=== PATIENT | male | born 1990 | race Caucasian/White ===

== ENCOUNTER 2017-10-22 13:50 | Emergency (ER) | payer BC, MEDICARE ==
--- NOTE | 2017-10-22 16:40 | EDM.PDOC ---
ED HPI GENERAL MEDICAL PROBLEM - General Chief Complaint: General Stated Complaint: PAIN ALL OVER Time Seen by Provider: 10/22/17 14:36 Source of Information: Reports: Patient History Limitations: Reports: No Limitations - History of Present Illness INITIAL COMMENTS - FREE TEXT/NARRATIVE: HISTORY AND PHYSICAL: []27-year-old male presenting with generalized pain History of Present Illness: []Patient states he has pain to his hands his arms his chest his feet and legs for one year Patient was seen yesterday at [facility] in [place], [place]. Patient is accompanied by his mother. Review of Systems: As per history of present illness and below otherwise all systems reviewed and negative. Past medical history: As per history of present illness and as reviewed below otherwise noncontributory. Surgical history: As per history of present illness and as reviewed below otherwise noncontributory. Social history: No reported history of drug or alcohol abuse. Family history: As per history of present illness and as reviewed below otherwise noncontributory. Physical exam: Alert and oriented man answering questions appropriately without any shortness of breath somewhat disheveled in appearance. Catheter present all over his clothing. Dirt is under his nails. Skin is intact without any open sores. HEENT: Atraumatic, normocehpalic, pupils reactive, negative for conjunctival pallor or scleral icterus, mucous membranes moist, throat clear, neck supple, nontender, trachea midline. Tongue is coated white. Cerumen is noted bilaterally to the tympanic canals. Lungs: Clear to auscultation, breath sounds equal bilaterally, chest non tender. Heart: S1S2, regular, negative for clicks, rubs, or JVD. Abdomen: Soft, nondistended, nontender. Negative for masses or hepatossplenmegaly. Negative for costovertebral tenderness. Pelvis: Stable nontender. Patient is able to bear weight on both hips and knees without significant discomfort. Pain is is reported to be worse while he is sitting. Genitourinary: Deferred. Rectal: Deferred Extremities: Atraumatic, negative for cords or calf pain. Full range of motion is present. No joints that are erythematous and/or edematous. Neurovascular unremarkable. Neuro: Awake, alert, oriented. Cranial nerves II through XII unremarkable. Cerebellum unremarkable. Motor and sensory unremarkable throughout. Exam nonfocal. Full range of motion to all joints. Patient's pain level has improved since the Toradol was given. Heartburn improved after the GI cocktail was given Diagnostics: [CBC UA urine culture ESR CRP EKG chest x-ray] Therapeutics: [Toradol] Impression: [Generalized body pain/chronic Hematuria] Plan: [Discharged to home Follow up with Dr. Calderón in [place] May need a referral to rheumatology May need a referral to urology for hematuria] Definitive disposition and diagnosis as appropriate pending reevaluation and review of above. Onset: Gradual Duration: Chronic, Getting Worse Location: Reports: Generalized Quality: Reports: Same as Previous Episode Severity: Mild Improves with: Reports: None Back Pain Score (Numeric/FACES): 7 Neck Pain Score (Numeric/FACES): 7 Thoracic Pain Score (Numeric/FACES): 7 - Related Data Allergies Allergy/AdvReac Type Severity Reaction Status Date / Time No Known Allergies Allergy Verified 10/22/17 14:28 Home Meds: Home Meds OLANZapine [ZyPREXA] 10/22/17 [History] Past Medical History Psychiatric History: Reports: Addiction, Schizophrenia - Infectious Disease History Infectious Disease History: Reports: Chicken Pox Social & Family History - Family History Family Medical History: Noncontributory - Tobacco Use Smoking Status *Q: Current Every Day Smoker Years of Tobacco use: 5 Packs/Tins Daily: 1 - Recreational Drug Use Recreational Drug Use: Yes Drug Use in Last 12 Months: Yes Recreational Drug Type: Reports: Marijuana/Hashish, Methamphetamine Recreational Drug Use Frequency: Binges ED ROS GENERAL - Review of Systems Review Of Systems: ROS reveals no pertinent complaints other than HPI. ED EXAM, GENERAL - Physical Exam Exam: See Below EKG INTERPRETATION EKG Date: 10/22/17 Rhythm: Other (Sinus tachycardia) Rate (Beats/Min): 99 Comparison: NA - No Prior EKG Course - Vital Signs Last Recorded V/S: Last Vital Signs Temp 36.0 C 10/22/17 14:23 Pulse 125 H 10/22/17 14:23 Resp 18 10/22/17 14:23 BP 131/84 10/22/17 14:23 Pulse Ox 97 10/22/17 14:23 - Orders/Labs/Meds Orders: Active Orders 24 hr Category Date Time Status EKG Documentation Completion [RC] STAT Care 10/22/17 17:27 Active Chest 2V [CR] Stat Exams 10/22/17 18:31 Taken CULTURE URINE [RM] Stat Lab 10/22/17 17:50 Received Labs: Laboratory Tests 10/22/17 10/22/17 10/22/17 Range/Units 17:09 17:09 17:09 WBC 16.90 H (4.0-11.0) K/uL RBC 5.21 (4.50-5.90) M/uL Hgb 16.0 (13.0-17.0) g/dL Hct 45.1 (38.0-50.0) % MCV 86.6 (80.0-98.0) fL MCH 30.7 (27.0-32.0) pg MCHC 35.5 (31.0-37.0) g/dL RDW Std Deviation 40.2 (28.0-62.0) fl RDW Coeff of Abby 13 (11.0-15.0) % Plt Count 268 (150-400) K/uL MPV 9.70 (7.40-12.00) fL Neut % (Auto) 78.0 (48.0-80.0) % Lymph % (Auto) 10.8 L (16.0-40.0) % [place] % (Auto) 10.0 (0.0-15.0) % Eos % (Auto) 1.0 (0.0-7.0) % Baso % (Auto) 0.2 (0.0-1.5) % Neut # (Auto) 13.2 H (1.4-5.7) K/uL Lymph # (Auto) 1.8 (0.6-2.4) K/uL [place] # (Auto) 1.7 H (0.0-0.8) K/uL Eos # (Auto) 0.2 (0.0-0.7) K/uL Baso # (Auto) 0.0 (0.0-0.1) K/uL Nucleated RBC % 0.0 /100WBC Nucleated RBCs # 0 K/uL ESR 4 (0-14) mm/hr Uric Acid 4.6 (2.1-7.4) mg/dL C-Reactive Protein 1.93 H (0.0-0.5) mg/dL Urine Color Urine Appearance Urine pH (5.0-8.0) Ur Specific [place] (1.001-1.035) Urine Protein (NEGATIVE) mg/dL Urine Glucose (UA) (NEGATIVE) mg/dL Urine Ketones (NEGATIVE) mg/dL Urine Occult Blood (NEGATIVE) Urine Nitrite (NEGATIVE) Urine Bilirubin (NEGATIVE) Urine Urobilinogen (<2.0) EU/dL Ur Leukocyte Esterase (NEGATIVE) Urine RBC (0-2/HPF) Urine WBC (0-5/HPF) Ur Epithelial Cells (NONE-FEW) Urine Bacteria (NEGATIVE) Urine Opiates Screen (NEGATIVE) Ur Oxycodone Screen (NEGATIVE) Urine Methadone Screen (NEGATIVE) Ur Barbiturates Screen (NEGATIVE) Ur Phencyclidine Scrn (NEGATIVE) Ur Amphetamine Screen (NEGATIVE) U Methamphetamines Scrn (NEGATIVE) U Benzodiazepines Scrn (NEGATIVE) U Cocaine Metab Screen (NEGATIVE) U Marijuana (THC) Screen (NEGATIVE) Monoscreen (NEG) 10/22/17 10/22/17 10/22/17 Range/Units 17:09 17:50 17:50 WBC (4.0-11.0) K/uL RBC (4.50-5.90) M/uL Hgb (13.0-17.0) g/dL Hct (38.0-50.0) % MCV (80.0-98.0) fL MCH (27.0-32.0) pg MCHC (31.0-37.0) g/dL RDW Std Deviation (28.0-62.0) fl RDW Coeff of Abby (11.0-15.0) % Plt Count (150-400) K/uL MPV (7.40-12.00) fL Neut % (Auto) (48.0-80.0) % Lymph % (Auto) (16.0-40.0) % [place] % (Auto) (0.0-15.0) % Eos % (Auto) (0.0-7.0) % Baso % (Auto) (0.0-1.5) % Neut # (Auto) (1.4-5.7) K/uL Lymph # (Auto) (0.6-2.4) K/uL [place] # (Auto) (0.0-0.8) K/uL Eos # (Auto) (0.0-0.7) K/uL Baso # (Auto) (0.0-0.1) K/uL Nucleated RBC % /100WBC Nucleated RBCs # K/uL ESR (0-14) mm/hr Uric Acid (2.1-7.4) mg/dL C-Reactive Protein (0.0-0.5) mg/dL Urine Color YELLOW Urine Appearance CLEAR Urine pH 6.0 (5.0-8.0) Ur Specific [place] <= 1.005 (1.001-1.035) Urine Protein NEGATIVE (NEGATIVE) mg/dL Urine Glucose (UA) NEGATIVE (NEGATIVE) mg/dL Urine Ketones NEGATIVE (NEGATIVE) mg/dL Urine Occult Blood MODERATE (NEGATIVE) Urine Nitrite NEGATIVE (NEGATIVE) Urine Bilirubin NEGATIVE (NEGATIVE) Urine Urobilinogen 0.2 (<2.0) EU/dL Ur Leukocyte Esterase NEGATIVE (NEGATIVE) Urine RBC 2-4 (0-2/HPF) Urine WBC 0-2 (0-5/HPF) Ur Epithelial Cells OCCASIONAL (NONE-FEW) Urine Bacteria FEW (NEGATIVE) Urine Opiates Screen NEGATIVE (NEGATIVE) Ur Oxycodone Screen NEGATIVE (NEGATIVE) Urine Methadone Screen NEGATIVE (NEGATIVE) Ur Barbiturates Screen NEGATIVE (NEGATIVE) Ur Phencyclidine Scrn NEGATIVE (NEGATIVE) Ur Amphetamine Screen NEGATIVE (NEGATIVE) U Methamphetamines Scrn NEGATIVE (NEGATIVE) U Benzodiazepines Scrn NEGATIVE (NEGATIVE) U Cocaine Metab Screen NEGATIVE (NEGATIVE) U Marijuana (THC) Screen NEGATIVE (NEGATIVE) Monoscreen NEGATIVE (NEG) Meds: Medications Discontinued Medications Generic Name Dose Route Start Last Admin Trade Name Freq PRN Reason Stop Dose Admin Al Hydroxide/Mg Hydroxide 15 0 ml 10/22/17 18:39 10/22/17 18:47 ml/ Metoclopramide HCl 5 mg/ PO 10/22/17 18:40 1 each Lidocaine HCl 5 ml ONETIME ONE Administration Ketorolac Tromethamine 60 mg 10/22/17 16:55 10/22/17 17:41 Toradol IM 10/22/17 16:56 60 mg ONETIME ONE Administration Departure - Departure Time of Disposition: 19:30 Disposition: Home, Self-Care 01 Condition: Good Clinical Impression: Body aches Hematuria Qualifiers: Hematuria type: unspecified type Qualified Code(s): R31.9 - Hematuria, unspecified - Discharge Information Instructions: Hematuria, Adult, Pain Without a Known Cause Referrals: PCP,None [Primary Care Provider] - Forms: ED Department Discharge Additional Instructions: The following information is given to patients seen in the emergency department who are being discharged to home. This information is to outline your options for follow-up care. We provide all patients seen in our emergency department with a follow-up referral. The need for follow-up, as well as the timing and circumstances, are variable depending upon the specifics of your emergency department visit. If you don't have a primary care physician on staff, we will provide you with a referral. We always advise you to contact your personal physician following an emergency department visit to inform them of the circumstance of the visit and for follow-up with them and/or the need for any referrals to a consulting specialist. The emergency department will also refer you to a specialist when appropriate. This referral assures that you have the opportunity for followup care with a specialist. All of these measure are taken in an effort to provide you with optimal care, which includes your followup. Under all circumstances we always encourage you to contact your private physician who remains a resource for coordinating your care. When calling for followup care, please make the office aware that this follow-up is from your recent emergency room visit. If for any reason you are refused follow-up, please contact the [facility] emergency department at and asked to speak to the emergency department charge nurse. Anti-inflammatories such as ibuprofen 3 times a day as discussed hematuria will need to be followed by Dr. Calderón Make an appointment to see him next week - My Orders Last 24 Hours: My Active Orders 10/22/17 17:27 EKG Documentation Completion [RC] STAT 10/22/17 17:50 CULTURE URINE [RM] Stat 10/22/17 18:31 Chest 2V [CR] Stat - Assessment/Plan Last 24 Hours: My Active Orders 10/22/17 17:27 EKG Documentation Completion [RC] STAT 10/22/17 17:50 CULTURE URINE [RM] Stat 10/22/17 18:31 Chest 2V [CR] Stat
[2017-10-22] MEDS ORDERED: Ketorolac 60 MG/2 ML SDV IM ONE (16:55)
[2017-10-22] MEDS ORDERED: Alum Hydrox/Mag Hydrox/Simeth 15 ML, Metoclopramide 5 MG, Lidocaine 2% 5 ML PO ONE ×3 (18:39)
--- NOTE | 2017-10-25 08:52 | CR ---
EXAM DATE: 10/22/17 PATIENT'S AGE: 27 Patient: RAFFI GAGNON Facility: [place], [place] Site . Site : [id number] Study: XRay Chest [id number] 7:20:01 PM Ordering Physician: Doctor Eason Final Report: INDICATION: Chest pain; shortness of breath. COMPARISON: None. TECHNIQUE: Two-view chest. FINDINGS: Normal size cardiac silhouette. Clear lung zuniga without evidence of acute pneumonic infiltrates or CHF. No pneumothorax or pleural effusion. IMPRESSION: Negative chest. Dictated by Analia Arriaga MD @ Oct 22 2017 7:23PM (Electronic Signature) Report Signed by Proxy. ISELA
== END 2017-10-22 19:35 | disposition home or self-care (01) ==
LOC: MW.ED 13:50
DX: R07.9 Chest pain, unspecified (principal); M79.602 Pain in left arm; M79.601 Pain in right arm; M79.605 Pain in left leg; M79.604 Pain in right leg; G89.29 Other chronic pain; R31.9 Hematuria, unspecified; F20.9 Schizophrenia, unspecified; F17.210 Nicotine dependence, cigarettes, uncomplicated
CPT/HCPCS: 36415; 71046; 80305; 81001; 84550; 85025; 85652; 86140; 86308; 87086; 93005; 96372; 99284; A9270; J1885; 99283

== ENCOUNTER 2021-04-15 11:26 | Emergency (ER) | payer MEDICARE, MEDICAID ==
[2021-04-15] MEDS ORDERED: Sodium Chloride 0.9% 10 ML Syringe FLUSH PRN (12:59)
[2021-04-15] MEDS ORDERED: Sodium Chloride 0.9% 2.5 ML Syringe FLUSH PRN (12:59)
[2021-04-15] MEDS ORDERED: Sodium Chloride 0.9% 1,000 ML IV ONE (13:02)
--- NOTE | 2021-04-15 13:40 | PCM.EKG ---
#1 Interpretation EKG Date: 04/15/21 Time: 13:34 Rhythm: NSR Rate (Beats/Min): 92 [place]: Normal P-Wave: Present QRS: Normal ST-T: Normal QT: Normal Comparison: No Change (10/22/17) EKG Interpretation Comments: Sinus Rhythm
--- NOTE | 2021-04-15 13:53 | CR ---
INDICATION: Stroke code TECHNIQUE: Chest radiograph 1 view COMPARISON: 10/22/2017 FINDINGS: Mediastinum: The mediastinum is normal in appearance. Mild new cardiomegaly is noted but may be accentuated by the portable technique. Lung: Both lungs are unremarkable in appearance. No sign of pleural effusion seen. No pneumothorax is identified. Bone and Soft tissue: Unremarkable for age. IMPRESSION: 1. Mild new cardiomegaly is noted but may be accentuated by the portable technique. Dictated by Richard Knowles MD @ 04/15/2021 1:52:42 PM Dictated by: Richard Knowles MD @ 04/15/2021 13:52:47 (Electronically Signed)
[2021-04-15 13:59] LABS: BLOOD UREA NITROGEN,BUN 14 mg/dL (7.0-18.0); CARBON DIOXIDE,CO2 28.5 mmol/L (21.0-32.0); CHLORIDE,CL 102 mmol/L (98-107); GLUCOSE RANDOM 135 mg/dL (74-106); LIPASE 133 U/L (73-393); SODIUM,NA 139 mmol/L (136-148)
--- NOTE | 2021-04-15 14:46 | CR ---
INDICATION: Injury. TECHNIQUE: Thoracic spine, 2 views. COMPARISON: Chest radiograph 10/22/2017. FINDINGS: There are 12 rib-bearing thoracic type vertebral bodies. No acute fracture identified. Vertebral body heights are well maintained. Normal vertebral body alignment. No significant degenerative changes. The visualized lungs are clear. Soft tissues are unremarkable. IMPRESSION: No acute or significant findings. Dictated by Nenita Smith MD @ 04/15/2021 2:45:[address] Nenita Smith @ Apr 15 2021 2:45PM
--- NOTE | 2021-04-15 14:46 | EDM.PDOC ---
ED HPI GENERAL MEDICAL PROBLEM - General Chief Complaint: General Stated Complaint: EXTREME PAIN THROUGHOUT BODY/FEELS WARM/FATIGUE Time Seen by Provider: 04/15/21 11:37 Source of Information: Reports: Patient History Limitations: Reports: No Limitations - History of Present Illness INITIAL COMMENTS - FREE TEXT/NARRATIVE: HISTORY AND PHYSICAL: History of present illness: Patient is a 31-year-old male who presents emergency room today with concern of various complaints including head/neck discomfort, short-term memory issues, upper back pain that has been ongoing for the past 2 weeks following head injury 2 weeks ago. Patient states that 2 weeks ago he was in his living room and states that he tripped on a new pair of shoes that he was wearing that were rubber. Patient states that he fell forward and hit his head against the wall and hurt his head and neck. Patient states that he went to the emergency room immediately following the incident in [place] and states he had a scan of his head and was told it was negative. Patient states that since then, he continues to have neck pain, upper back pain, head pain from the injury and states that he has generalized weakness. Patient states that also 1 week ago, he was diagnosed with bronchitis after he was seen in the emergency room for shortness of breath. Patient states he was given antibiotics and his shortness of breath has been improving over the past 1 week and no longer short of breath. Patient states he also has "pain all over "as he was bit by a pit bull many years ago of his hands. Patient denies any new injury or trauma. Patient states that he is also been tired and weak and states that he is able to get around but he feels as if "gravity is heavier ". Patient denies any other symptoms or concerns. Patient denies fever, chills, chest pain, shortness of breath, or cough. Denies change in vision, syncope, or near syncope. Denies nausea, vomiting, abdominal pain, diarrhea, constipation, or dysuria. Has not noted any blood in urine or stool. Patient has been eating and drinking appropriately. Review of systems: As per history of present illness and below otherwise all systems reviewed and negative. Past medical history: As per history of present illness and as reviewed below otherwise noncontributory. Surgical history: As per history of present illness and as reviewed below otherwise noncontributory. Social history: See social history for further information Family history: As per history of present illness and as reviewed below otherwise noncontributory. Physical exam: General: Patient is alert, oriented, and in no acute distress. Patient sitting comfortably on exam table. Vitals stable and reviewed by me. HEENT: Atraumatic, normocephalic, pupils equal and reactive bilaterally, negative for conjunctival pallor or scleral icterus, mucous membranes moist, TMs normal bilaterally, throat clear, neck supple, nontender, trachea midline. No drooling or trismus noted. No meningeal signs. No hot potato voice noted. Lungs: Clear to auscultation, breath sounds equal bilaterally, chest nontender. Heart: S1S2, regular rate and rhythm without overt murmur Abdomen: Soft, nondistended, nontender. Negative for masses or hepatosplenomegaly. Negative for costovertebral tenderness. Pelvis: Stable nontender. Genitourinary: Deferred. Rectal: Deferred. Skin: Intact, warm, dry. No lesions or rashes noted. Extremities: No obvious deformity of the complete spine. No step-offs, crepitus, or point tenderness to palpation of the complete spine. Patient does have some tenderness of the trapezius muscle of the cervical spine and paraspinous muscle of the thoracic spine but does have full range of motion of the complete spine. Straight leg raise intact bilaterally. Heel/toe gait intact. Patient is able to ambulate today in the emergency room without difficulty. Full range of motion of all extremities without pain or difficulty. Otherwise, atraumatic, negative for cords or calf pain. Neurovascular unremarkable. Neuro: Awake, alert, oriented. Cranial nerves II through XII unremarkable. Cerebellum unremarkable. Motor and sensory unremarkable throughout. Exam nonfocal. Notes: Patient is a 31-year-old male who presents emergency room today with concern variety of complaints including head/neck discomfort, generalized body aches, bronchitis 1 week ago, memory concerns, tiredness, and fatigue presenting for the past 1 to 2 weeks. Upon arrival to the ED, patient is mildly tachycardic 108 on exam, otherwise vitally stable. Patient does state that he had a recent head injury 2 weeks ago and was seen in the [place] emergency room. We will try to obtain these records but according to patient's description, possibly had a head CT scan. Will obtain an angiography head and neck given worsening/progressing symptoms since head injury as well as cardiac evaluation. See Dr. López's dictation for specific EKG interpretation. However, normal sinus rhythm with a rate of 92 bpm without STEMI. CBC shows a mild leukocytosis of 14.35 (non specific in isolation), otherwise remainder of CBC mild derangements are unremarkable. CMP shows an isolated mild elevation in glucose at 135. Otherwise CMP unremarkable. Troponin negative. TSH within normal limits. Alcohol negative. Covid negative. UDS is negative. FT alcohol negative. Covid negative. Chest x-ray shows new mild cardiomegaly noted but may be accentuated by portable technique. BNP machine is down so unable to obtain. Thoracic spine x-ray shows no acute or significant findings. Head and neck angiography shows no evidence of proximal artery occlusion, high- grade stenosis, aneurysm, dissection, or vascular malformation. Upon reevaluation of patient, he remains vitally stable and comfortable throughout stay in ED. Patient's mild tachycardia has resolved with normal saline given today in the emergency room. Strict return precautions thoroughly discussed with patient. Discussed importance for follow-up with a primary care provider. Voices understanding and is agreeable to plan of care. Denies any further questions or concerns at this time. Diagnostics: EKG, CBC, CMP, head neck angio CT, chest x-ray, thoracic x-ray, BNP, Trop, TSH, UDS, Ethanol [employer]: NS Prescription: None Impression: Concussion syndrome Neck injury Thoracic back injury Plan: 1. Follow-up with your primary care provider as discussed. Return to the ED as needed and as discussed. Definitive disposition and diagnosis as appropriate pending reevaluation and review of above. generalized body, head, neck Pain Score (Numeric/FACES): 7 - Related Data Allergies Allergy/AdvReac Type Severity Reaction Status Date / Time No Known Allergies Allergy Verified 04/15/21 12:26 Home Meds: Home Meds Omeprazole 20 mg PO BID PRN 04/15/21 [History] Past Medical History - Past Health History Medical/Surgical History: Denies Medical/Surgical History Psychiatric History: Reports: Addiction, Anxiety, Depression, Schizophrenia - Infectious Disease History Infectious Disease History: Reports: Chicken Pox, Measles Social & Family History - Family History Family Medical History: No Pertinent Family History - Tobacco Use Tobacco Use Status *Q: Current Every Day Tobacco User Years of Tobacco use: 10 Packs/Tins Daily: 1 - Alcohol Use Days Per Week of Alcohol Use: 7 Number of Drinks Per Day: 3 Total Drinks Per Week: 21 - Recreational Drug Use Recreational Drug Use: Yes Drug Use in Last 12 Months: No ED ROS GENERAL - Review of Systems Review Of Systems: Comprehensive ROS is negative, except as noted in HPI. ED EXAM, GENERAL - Physical Exam Exam: See Below (see dictation) Course - Vital Signs Last Recorded V/S: Last Vital Signs Temp 97.1 F 04/15/21 15:35 Pulse 81 04/15/21 15:35 Resp 18 04/15/21 15:35 BP 121/71 04/15/21 15:35 Pulse Ox 96 04/15/21 15:35 - Orders/Labs/Meds Orders: Active Orders 24 hr Category Date Time Status B-TYPE NATRIURETIC PEPTIDE,BNP [CHEM] Stat Lab 04/15/21 13:16 Stop Req Sodium Chloride 0.9% [Saline Flush] Med 04/15/21 12:59 Active 10 ml FLUSH ASDIRECTED PRN Sodium Chloride 0.9% [Saline Flush] Med 04/15/21 12:59 Active 2.5 ml FLUSH ASDIRECTED PRN Saline Lock Insert [OM.PC] Stat Oth 04/15/21 12:59 Ordered Medication Orders Sodium Chloride (Sodium Chloride 0.9% 10 Ml Syringe) 10 ml FLUSH ASDIRECTED PRN PRN Reason: Keep Vein Open Last Admin: 04/15/21 13:12 Dose: 10 ml Documented by: JARROD Sodium Chloride (Sodium Chloride 0.9% 2.5 Ml Syringe) 2.5 ml FLUSH ASDIRECTED PRN PRN Reason: Keep Vein Open Last Admin: 04/15/21 13:12 Dose: 2.5 ml Documented by: JARROD Labs: Laboratory Tests 04/15/21 04/15/21 04/15/21 Range/Units 13:14 13:16 13:16 WBC 14.35 H (4.0-11.0) K/uL RBC 4.99 (4.50-5.90) M/uL Hgb 14.8 (13.0-17.0) g/dL Hct 43.6 (38.0-50.0) % MCV 87.4 (80.0-98.0) fL MCH 29.7 (27.0-32.0) pg MCHC 33.9 (31.0-37.0) g/dL RDW Std Deviation 43.0 (28.0-62.0) fl RDW Coeff of Abby 14 (11.0-15.0) % Plt Count 363 (150-400) K/uL MPV 9.10 (7.40-12.00) fL Neut % (Auto) 68.9 (48.0-80.0) % Lymph % (Auto) 19.0 (16.0-40.0) % [place] % (Auto) 7.9 (0.0-15.0) % Eos % (Auto) 3.6 (0.0-7.0) % Baso % (Auto) 0.6 (0.0-1.5) % Neut # (Auto) 9.9 H (1.4-5.7) K/uL Lymph # (Auto) 2.7 H (0.6-2.4) K/uL [place] # (Auto) 1.1 H (0.0-0.8) K/uL Eos # (Auto) 0.5 (0.0-0.7) K/uL Baso # (Auto) 0.1 (0.0-0.1) K/uL Nucleated RBC % 0.0 /100WBC Nucleated RBCs # 0 K/uL Sodium 139 (136-148) mmol/L Potassium 4.0 (3.5-5.1) mmol/L Chloride 102 (98-107) mmol/L Carbon Dioxide 28.5 (21.0-32.0) mmol/L BUN 14 (7.0-18.0) mg/dL Creatinine 1.2 (0.8-1.3) mg/dL Est Cr Clr Drug Dosing 84.71 mL/min Estimated GFR (MDRD) > 60.0 ml/min Glucose 135 H (74-106) mg/dL Calcium 8.7 (8.5-10.1) mg/dL Total Bilirubin 0.2 (0.2-1.0) mg/dL AST 26 (15-37) IU/L ALT 59 (14-63) IU/L Alkaline Phosphatase 76 (46-116) U/L Troponin I < 0.050 (0.000-0.056) ng/mL Total Protein 7.3 (6.4-8.2) g/dL Albumin 3.6 (3.4-5.0) g/dL Globulin 3.7 (2.6-4.0) g/dL Albumin/Globulin Ratio 1.0 (0.9-1.6) Lipase 133 (73-393) U/L TSH, Ultra Sensitive 1.67 (0.36-3.74) uIU/mL Urine Opiates Screen NEGATIVE (NEGATIVE) Ur Oxycodone Screen NEGATIVE (NEGATIVE) Urine Methadone Screen NEGATIVE (NEGATIVE) Ur Barbiturates Screen NEGATIVE (NEGATIVE) Ur Phencyclidine Scrn NEGATIVE (NEGATIVE) Ur Amphetamine Screen NEGATIVE (NEGATIVE) U Methamphetamines Scrn NEGATIVE (NEGATIVE) U Benzodiazepines Scrn NEGATIVE (NEGATIVE) U Cocaine Metab Screen NEGATIVE (NEGATIVE) U Marijuana (THC) Screen NEGATIVE (NEGATIVE) Ethyl Alcohol < 3.0 mg/dL SARS-CoV-2 RNA (ILENE) (NEGATIVE) 04/15/21 Range/Units 13:16 WBC (4.0-11.0) K/uL RBC (4.50-5.90) M/uL Hgb (13.0-17.0) g/dL Hct (38.0-50.0) % MCV (80.0-98.0) fL MCH (27.0-32.0) pg MCHC (31.0-37.0) g/dL RDW Std Deviation (28.0-62.0) fl RDW Coeff of Abby (11.0-15.0) % Plt Count (150-400) K/uL MPV (7.40-12.00) fL Neut % (Auto) (48.0-80.0) % Lymph % (Auto) (16.0-40.0) % [place] % (Auto) (0.0-15.0) % Eos % (Auto) (0.0-7.0) % Baso % (Auto) (0.0-1.5) % Neut # (Auto) (1.4-5.7) K/uL Lymph # (Auto) (0.6-2.4) K/uL [place] # (Auto) (0.0-0.8) K/uL Eos # (Auto) (0.0-0.7) K/uL Baso # (Auto) (0.0-0.1) K/uL Nucleated RBC % /100WBC Nucleated RBCs # K/uL Sodium (136-148) mmol/L Potassium (3.5-5.1) mmol/L Chloride (98-107) mmol/L Carbon Dioxide (21.0-32.0) mmol/L BUN (7.0-18.0) mg/dL Creatinine (0.8-1.3) mg/dL Est Cr Clr Drug Dosing mL/min Estimated GFR (MDRD) ml/min Glucose (74-106) mg/dL Calcium (8.5-10.1) mg/dL Total Bilirubin (0.2-1.0) mg/dL AST (15-37) IU/L ALT (14-63) IU/L Alkaline Phosphatase (46-116) U/L Troponin I (0.000-0.056) ng/mL Total Protein (6.4-8.2) g/dL Albumin (3.4-5.0) g/dL Globulin (2.6-4.0) g/dL Albumin/Globulin Ratio (0.9-1.6) Lipase (73-393) U/L TSH, Ultra Sensitive (0.36-3.74) uIU/mL Urine Opiates Screen (NEGATIVE) Ur Oxycodone Screen (NEGATIVE) Urine Methadone Screen (NEGATIVE) Ur Barbiturates Screen (NEGATIVE) Ur Phencyclidine Scrn (NEGATIVE) Ur Amphetamine Screen (NEGATIVE) U Methamphetamines Scrn (NEGATIVE) U Benzodiazepines Scrn (NEGATIVE) U Cocaine Metab Screen (NEGATIVE) U Marijuana (THC) Screen (NEGATIVE) Ethyl Alcohol mg/dL SARS-CoV-2 RNA (ILENE) NEGATIVE (NEGATIVE) Meds: Medications Generic Name Dose Route Start Last Admin Trade Name Freq PRN Reason Stop Dose Admin Sodium Chloride 10 ml 04/15/21 12:59 04/15/21 13:12 Sodium Chloride 0.9% 10 Ml Syringe FLUSH 10 ml ASDIRECTED PRN Administration Keep Vein Open Sodium Chloride 2.5 ml 04/15/21 12:59 04/15/21 13:12 Sodium Chloride 0.9% 2.5 Ml Syringe FLUSH 2.5 ml ASDIRECTED PRN Administration Keep Vein Open Discontinued Medications Generic Name Dose Route Start Last Admin Trade Name Freq PRN Reason Stop Dose Admin Sodium Chloride 1,000 mls @ 999 mls/hr 04/15/21 13:02 04/15/21 13:12 Normal Saline IV 04/15/21 14:02 999 mls/hr STAT ONE Administration Iopamidol 100 ml 04/15/21 15:41 04/15/21 15:41 Iopamidol 755 Mg/Ml 500 Ml Multipack Bottle IVPUSH 04/15/21 15:42 100 ml ONETIME STA Administration Departure - Departure Time of Disposition: 15:56 Disposition: Home, Self-Care 01 Clinical Impression: Concussion syndrome Neck injury Qualifiers: Encounter type: subsequent encounter Qualified Code(s): S19.9XXD - Unspecified injury of neck, subsequent encounter Injury of back of thorax Qualifiers: Encounter type: subsequent encounter Qualified Code(s): S29.9XXD - Unspecified injury of thorax, subsequent encounter - Discharge Information Referrals: PCP,Not In Area [Primary Care Provider] - Forms: ED Department Discharge Additional Instructions: The following information is given to patients seen in the emergency department who are being discharged to home. This information is to outline your options for follow-up care. We provide all patients seen in our emergency department with a follow-up referral. The need for follow-up, as well as the timing and circumstances, are variable depending upon the specifics of your emergency department visit. If you don't have a primary care physician on staff, we will provide you with a referral. We always advise you to contact your personal physician following an emergency department visit to inform them of the circumstance of the visit and for follow-up with them and/or the need for any referrals to a consulting specialist. The emergency department will also refer you to a specialist when appropriate. This referral assures that you have the opportunity for follow-up care with a specialist. All of these measure are taken in an effort to provide you with optimal care, which includes your follow-up. Under all circumstances we always encourage you to contact your private physician who remains a resource for coordinating your care. When calling for follow-up care, please make the office aware that this follow-up is from your recent emergency room visit. If for any reason you are refused follow-up, please contact the [facility] Emergency Department at and asked to speak to the emergency department charge nurse. [facility] [address] [place] [address] [facility] [address] [place] [address] 1. Follow-up with a primary care provider as discussed. Return to the ED as needed and as discussed. 2. You can alternate ibuprofen and Tylenol as directed for pain and discomfort. Sepsis Event Note (ED) - Evaluation Sepsis Screening Result: No Definite Risk - Focused Exam Vital Signs: Vital Signs Temp Pulse Resp BP Pulse Ox 04/15/21 15:35 97.1 F 81 18 121/71 96 04/15/21 12:46 97.2 F 117 H 20 132/97 H 97 04/15/21 12:22 97.6 F 108 H 18 138/59 L 95 - My Orders Last 24 Hours: My Active Orders 04/15/21 12:59 Sodium Chloride 0.9% [Saline Flush] 10 ml FLUSH ASDIRECTED PRN Sodium Chloride 0.9% [Saline Flush] 2.5 ml FLUSH ASDIRECTED PRN Saline Lock Insert [OM.PC] Stat 04/15/21 13:16 B-TYPE NATRIURETIC PEPTIDE,BNP [CHEM] Stat - Assessment/Plan Last 24 Hours: My Active Orders 04/15/21 12:59 Sodium Chloride 0.9% [Saline Flush] 10 ml FLUSH ASDIRECTED PRN Sodium Chloride 0.9% [Saline Flush] 2.5 ml FLUSH ASDIRECTED PRN Saline Lock Insert [OM.PC] Stat 04/15/21 13:16 B-TYPE NATRIURETIC PEPTIDE,BNP [CHEM] Stat
[2021-04-15] MEDS ORDERED: Iopamidol 755 MG/ML 500 ML Multipack Bottle IVPUSH STA (15:41)
--- NOTE | 2021-04-15 15:46 | CT ---
DATE: 04/15/2021. CLINICAL HISTORY: Patient with worsening memory after head/neck injury several weeks ago. TECHNIQUE: Standard helical CT image acquisition through the head and neck after intravenous contrast bolus enhancement was performed. Multiplanar reconstructed images performed on a separate workstation. COMPARISON: None available. FINDINGS: The origins of the great vessels from the aortic arch are patent. The origins of the right and left vertebral arteries are patent. The common carotid arteries are patent. No significant stenoses at the origins of the proximal internal carotid arteries by NASCET criteria. The more distal cervical segments of the internal carotid arteries are patent. The cervical segments of the vertebral arteries are patent. No intracranial proximal large vessel occlusion or flow-limiting luminal stenosis. The visualized lung apices are unremarkable. The thyroid gland is unremarkable. The cervical spine is unremarkable. IMPRESSION: 1. No intracranial proximal large vessel occlusion or flow limiting luminal stenosis. 2. Patent cervical arterial vasculature with no hemodynamically significant luminal stenosis. Please note that all CT scans at this facility use dose modulation, iterative reconstruction, and/or weight-based dosing when appropriate to reduce radiation dose to as low as reasonably achievable. Dictated by Julius Ross MD @ 04/15/2021 9:52:[address] Julius Ross @ Apr 15 2021 9:52PM
--- NOTE | 2021-04-15 15:50 | CT ---
DATE: 04/15/2021. CLINICAL HISTORY: Patient with worsening memory after head/neck injury several weeks ago. TECHNIQUE: Standard helical CT image acquisition through the head and neck after intravenous contrast bolus enhancement was performed. Multiplanar reconstructed images performed on a separate workstation. COMPARISON: None available. FINDINGS: The origins of the great vessels from the aortic arch are patent. The origins of the right and left vertebral arteries are patent. The common carotid arteries are patent. No significant stenoses at the origins of the proximal internal carotid arteries by NASCET criteria. The more distal cervical segments of the internal carotid arteries are patent. The cervical segments of the vertebral arteries are patent. No intracranial proximal large vessel occlusion or flow-limiting luminal stenosis. The visualized lung apices are unremarkable. The thyroid gland is unremarkable. The cervical spine is unremarkable. IMPRESSION: 1. No intracranial proximal large vessel occlusion or flow limiting luminal stenosis. 2. Patent cervical arterial vasculature with no hemodynamically significant luminal stenosis. Please note that all CT scans at this facility use dose modulation, iterative reconstruction, and/or weight-based dosing when appropriate to reduce radiation dose to as low as reasonably achievable. Dictated by Julius Ross MD @ 04/15/2021 9:51:[address] Julius Ross @ Apr 15 2021 9:51PM
== END 2021-04-15 16:06 | disposition home or self-care (01) ==
LOC: MW.ED 11:26
DX: S19.9XXD Unspecified injury of neck, subsequent encounter (principal); S29.9XXD Unspecified injury of thorax, subsequent encounter; F07.81 Postconcussional syndrome; Z72.0 Tobacco use; Z20.822 Contact with and (suspected) exposure to COVID-19; W01.10XD Fall on same level from slipping, tripping and stumbling with subsequent striking against unspecified object, subsequent encounter
CPT/HCPCS: 36415; 70496; 70498; 71045; 72070; 80053; 80305; 80307; 83690; 84443; 84484; 85025; 93005; 99284; J7030; Q9967; U0002; 93010